=== PATIENT | male | born 1975 | race Caucasian/White ===

== ENCOUNTER 2016-07-09 10:22 | Emergency (ER) | payer SELFPAY ==
--- NOTE | ~2016-07-09 | CT2 ---
[facility] A Service [facility] RADIOLOGY TEXT RESULTS PATIENT: BERNARDINO OBRIEN LOCATION: SED : 75 UNIT #: [id number] AGE: [address]: Ky Pacheco DO SEX: M ORDER DR: [id number] [place] [id number] E MR#: [id number] #: [id number] NAME: BERNARDINO OBRIEN : 1975 SEX: M STUDY DATE/TIME: 07/09/2016 12:24 UNIT: SED ROOM: STUDY DESCRIPTION: CT Abd and Pelv W Cont Ordering Physician: [facility] MEDICAL IMAGING REPORT This report is preliminary unless electronic signature is present. EXAM CT abdomen and pelvis with contrast INDICATIONS Epigastric abdominal pain and right lower quadrant abdominal pain today. TECHNIQUE Contrast-enhanced CT abdomen and pelvis 100 mL of Isovue-370. This CT exam was performed with one or more of the following radiation dose reduction techniques: automatic exposure control, adjustment of mA and/or kV according to patient size, and iterative reconstruction. COMPARISON STUDIES None. FINDINGS ABDOMEN WITH CONTRAST: Included lung bases are clear. There is a 10 mm enhancing focus in the segment 7 of the liver at the dome. The spleen, kidneys, adrenal glands, pancreas and gallbladder unremarkable. Bowel loops are non-dilated. The appendix is dilated with mild surrounding inflammatory change. The appendix measures up to 1.1 cm in diameter. There is no evidence for abscess. PELVIS WITH CONTRAST: No pelvic mass or fluid. No aggressive appearing bone lesion. IMPRESSION 1. Acute appendicitis. No evidence for abscess or rupture. 2. Indeterminate 10 mm lesion segment 7 of the liver probably representing benign hemangioma in the absence of any known STS. [facility] A Service [facility] RADIOLOGY TEXT RESULTS PATIENT: BERNARDINO OBRIEN LOCATION: SED : 75 UNIT #: [id number] AGE: [address]: Ky Pacheco DO SEX: M ORDER DR: malignancy. It could be characterized with MRI or liver protocol CT if desired clinically. Dictated by... Billy Jarvis M.D. THIS IS AN ELECTRONICALLY VERIFIED REPORT Billy Jarvis M.D. at 07/10/2016 9:43 AM LAWRENCE/jessenia TD: 07/09/2016 14:26 JOB #: [id number] MEDICAL IMAGING REPORT Page 1 of 1
--- NOTE | ~2016-07-09 | EKG ---
PATIENT: BERNARDINO OBRIEN UNIT #: [id number] Ventricular Rate: 57 BPM Atrial Rate: 57 BPM P-R Interval: 140 ms QRS Duration: 82 ms Q-T Interval: 434 ms QTC Calculation(Bezet): 422 ms P [place]: 47 degrees Calculated R [place]: 5 degrees Calculated T [place]: 21 degrees Diagnosis Line: Sinus bradycardia Diagnosis Line: Otherwise normal ECG Diagnosis Line: When compared with ECG of 02-OCT-2014 04:59, Diagnosis Line: No significant change was found Diagnosis Line: Confirmed by UCHE HERNÁNDEZ MD ([id number]) on 07/13/2016 Diagnosis Line: 11:57:39 AM INTERPRETING MD: BETTY PARDO
[~2016-07-09 10:22] MED LIST: ACULAR10 ML OD; IBUPROFEN PO; ILOTYCIN1 GM OD; MUCINEX DM TABL1 BOX PO; NO MEDICATIONS; VICODIN PO
[2016-07-09 10:52] LABS: BASOPHIL% 0.3 % (0-2.5); DIFF IND NO; EOSINOPHIL# 0.1 X10e3 (0-0.7); EOSINOPHIL% 0.3 % (0.0-7.0); HEMATOCRIT 47.8 % (38.0-50.0); LYMPHOCYTE% 6.4 % (17.0-45.0); MEAN CELL VOLUME 83.9 FL (83-96); MEAN CORPUSCULAR HGB CONC 33.4 g/dL (30-36); MEAN PLATELET VOLUME 8.6 FL (6.5-11.5); MONOCYTE# 0.5 X10e3 (0-1.0); MONOCYTE% 3.4 % (3.0-12.0); NEUTROPHIL# 13.5 X10e3 (1.5-7.1); NEUTROPHIL% 89.6 % (40-75); PLATELET COUNT 292 X10e3 (140-420); RED BLOOD COUNT 5.69 X10e (3.90-5.60); RED CELL DISTRIBUTION WIDTH 13.4 % (11.0-15.5); WHITE BLOOD COUNT 15.1 X10e3 (4.0-10.5)
[2016-07-09 11:09] LABS: ALKALINE PHOSPHATASE 75 U/L (32-92); ALT (SGPT) 25 U/L (10-40); AST (SGOT) 23 U/L (10-42); BILIRUBIN,TOTAL 0.6 mg/dL (0.2-2.0); BLOOD UREA NITROGEN 13 mg/dL (9-23); BUN/CREATININE RATIO 14.44; CALCIUM SERUM 9.5 mg/dL (8.4-10.2); CARBON DIOXIDE 25 mmol/L (22-31); CHLORIDE 103 mmol/L (100-111); CREATININE SERUM 0.9 mg/dL (0.6-1.4); GLOM FILT RATE Estimated 105.7 mL/min (>60); GLUCOSE FASTING 127 mg/dL (70-110); LIPASE 31 U/L (22-51); POTASSIUM 4.4 mmol/L (3.5-5.1); PROTEIN TOTAL SERUM 8.2 g/dL (6.0-8.3); SODIUM 136 mmol/L (135-145)
[2016-07-09 11:12] LABS: BILIRUBIN, DIRECT <0.1 mg/dL (0.0-0.2); BILIRUBIN,INDIRECT 0.5 mg/dL (0.0-0.9)
[2016-07-09 11:42] LABS: URINE SOURCE CLEAN CATCH
[2016-07-09 11:44] LABS: MICRO INDICATED? NO; URINE APPEARANCE CLEAR; URINE BILIRUBIN NEG (NEG); URINE BLOOD NEG (NEG); URINE COLOR YELLOW; URINE GLUCOSE NEG (NORM); URINE KETONE NEG (NEG); URINE LEUKOCYTE ESTERASE NEG (NEG); URINE NITRATE NEG (NEG); URINE PROTEIN NEG (NEG); URINE SPECIFIC GRAVITY <=1.005 (1.003-1.035); URINE UROBILINOGEN 0.2 MG/DL (NORM)
== END 2016-07-09 14:30 | disposition hospice, home (50) ==
LOC: SED 10:22
PROVIDERS: Emergency Medicine
DX: K35.80 Unspecified acute appendicitis (principal)
CPT/HCPCS: 36415; 74177; 80048; 80076; 81003; 83605; 83690; 85025; 93005; 96361; 96374; 96375; 99285; J1170; J2405; J2543; Q9967